=== PATIENT | male | born 1965 | race Caucasian/White ===

== ENCOUNTER 2017-05-31 19:52 | Emergency (ER) | payer MEDICAID ==
[~2017-05-31] VITALS: Ht 182.9 cm; Wt 96.2 kg
[2017-05-31 19:59] VITALS: BP_SYST 131
[2017-05-31 20:20] VITALS: BP_SYST 120
[2017-05-31] MEDS ORDERED: DIPHENHYDRAMINE INJ 50 MG/ML VIAL IM ONE (22:00)
[2017-05-31] MEDS ORDERED: FAMOTIDINE 20 MG TABLET PO ONE (22:00)
[2017-05-31] MEDS ORDERED: DEXAMETHASONE SOD PHOSPHATE 10 MG/ML VIAL IM ONE (22:00)
[2017-05-31 23:08] VITALS: BP_SYST 124
== END 2017-05-31 23:08 | disposition home or self-care (01) ==
LOC: SED 19:52
DX: L50.9 Urticaria, unspecified (principal)
CPT/HCPCS: 96372; 99284; J1100; J1200